=== PATIENT | male | born 1975 | race Caucasian/White ===

== ENCOUNTER → 2018-09-07 11:38 | Outpatient (CLI) | payer OTHER, SELFPAY ==
[2018-09-07 12:50] LABS: Hematocrit 47.6 % (41-53); Hemoglobin 16.5 g/dL (13.5-17.5); Mean Corpuscular HGB Conc 34.7 % (30-36); Mean Corpuscular Hemoglobin 30.8 PG (26-34); Mean Corpuscular Volume 88.8 fL (80-100); Platelet Count 191 X10^3/uL (150-400); Red Blood Cell Count 5.37 X10^6/uL (4.5-5.9); Red Cell Distribution Width 13.4 % (11.6-14.8); White Blood Cell Count 10.2 X10^3/uL (4.5-11.0)
[2018-09-07 14:06] LABS: Anisocytosis 1+; Neutrophils Absolute Manual 6426 /uL (3000-5900); Poikilocytosis 1+; Total Cells Counted 100
[2018-09-07 17:32] LABS: Blood Urea Nitrogen 20 mg/dL (9-20); Calcium 10.1 mg/dL (8.4-10.2); Carbon Dioxide 27 mmol/L (22-32); Chloride 102 mmol/L (98-107); Estimated Glomerular Filt Rate > 60.0 mL/min (>60); Glucose 93 mg/dL (70-100); HEMOLYSIS < 15 (0-50); Potassium 4.2 mmol/L (3.4-5.1); Sodium 141 mmol/L (137-145)
== END ==
PROVIDERS: Visit Provider Hospitalist
DX: I10 Essential (primary) hypertension (principal)
CPT/HCPCS: 36415; 80048; 85025

== ENCOUNTER → 2018-11-10 12:50 | Outpatient (CLI) | payer OTHER, SELFPAY ==
[2018-11-10 13:21] LABS: Add Manual Diff / Slide Review NO; Basophils Absolute Auto 100 /uL (0-100); Basophils Percent Auto 0.6 % (0-2); Eosinophils Absolute Auto 300 /uL (0-450); Eosinophils Percent Auto 2.7 % (2-4); Hematocrit 47.3 % (41-53); Hemoglobin 16.1 g/dL (13.5-17.5); Lymphocytes Absolute Auto 2600 /uL (1100-4500); Lymphocytes Percent Auto 24.9 % (25-40); Mean Corpuscular Hemoglobin 30.7 PG (26-34); Mean Corpuscular Volume 90.1 fL (80-100); Monocytes Absolute Auto 900 /uL (0-900); Monocytes Percent Auto 8.2 % (3-14); Neutrophils Absolute Auto 6700 /uL (1500-7000); Neutrophils Percent Auto 63.6 % (50-75); Platelet Count 201 X10^3/uL (150-400); Red Blood Cell Count 5.25 X10^6/uL (4.5-5.9); Red Cell Distribution Width 13.3 % (11.6-14.8); White Blood Cell Count 10.5 X10^3/uL (4.5-11.0)
[2018-11-10 14:31] LABS: Ferritin 63.7 ng/mL (17.9-464)
== END ==
DX: E83.110 Hereditary hemochromatosis (principal)
CPT/HCPCS: 36415; 82728; 85025

== ENCOUNTER → 2018-11-24 11:07 | Outpatient (CLI) | payer OTHER, SELFPAY ==
[2018-11-24 11:23] LABS: Add Manual Diff / Slide Review NO; Basophils Absolute Auto 100 /uL (0-100); Basophils Percent Auto 0.5 % (0-2); Eosinophils Absolute Auto 100 /uL (0-450); Eosinophils Percent Auto 1.4 % (2-4); Hematocrit 47.3 % (41-53); Hemoglobin 16.3 g/dL (13.5-17.5); Lymphocytes Absolute Auto 2000 /uL (1100-4500); Lymphocytes Percent Auto 20.2 % (25-40); Mean Corpuscular HGB Conc 34.4 % (30-36); Mean Corpuscular Hemoglobin 30.9 PG (26-34); Mean Corpuscular Volume 89.9 fL (80-100); Monocytes Absolute Auto 600 /uL (0-900); Monocytes Percent Auto 5.9 % (3-14); Neutrophils Absolute Auto 6900 /uL (1500-7000); Platelet Count 201 X10^3/uL (150-400); Red Blood Cell Count 5.26 X10^6/uL (4.5-5.9); Red Cell Distribution Width 12.9 % (11.6-14.8); White Blood Cell Count 9.6 X10^3/uL (4.5-11.0)
[2018-11-24 12:23] LABS: 585 Gram Check PASS; Dizziness NO; Postdiastolic BP 109; Postsystolic BP 174; Prediastolic 111; Presystolic 165; Pulse 105; Site of phlebotomy RAC; Swelling NO; Therapeutic Phleb Comment NO COMMENT; Zero Check Sebra Scale PASS
== END ==
DX: E83.110 Hereditary hemochromatosis (principal)
CPT/HCPCS: 36415; 82728; 85025; 99195

== ENCOUNTER → 2019-06-30 11:58 | Outpatient (CLI) | payer OTHER, SELFPAY ==
[2019-06-30 13:28] LABS: Hemoglobin A1C% w Est Avg Glu 7.6 % (4.0-6.0)
[2019-06-30 14:19] LABS: Glucose 118 mg/dL (70-100)
== END ==
PROVIDERS: PCP Internal Medicine; Referring Provider Internal Medicine; Visit Provider Internal Medicine
DX: R73.9 Hyperglycemia, unspecified (principal)
CPT/HCPCS: 36415; 82947; 83036

== ENCOUNTER → 2019-07-28 11:24 | Outpatient (CLI) | payer OTHER, SELFPAY ==
[2019-07-28 12:38] LABS: Add Manual Diff / Slide Review NO; Basophils Absolute Auto 100 /uL (0-100); Basophils Percent Auto 0.8 % (0-2); Eosinophils Absolute Auto 200 /uL (0-450); Eosinophils Percent Auto 2.1 % (2-4); Hematocrit 44.1 % (41-53); Hemoglobin 14.9 g/dL (13.5-17.5); Lymphocytes Absolute Auto 2400 /uL (1100-4500); Lymphocytes Percent Auto 27.9 % (25-40); Mean Corpuscular HGB Conc 33.7 % (30-36); Mean Corpuscular Hemoglobin 30.8 PG (26-34); Mean Corpuscular Volume 91.3 fL (80-100); Monocytes Absolute Auto 500 /uL (0-900); Monocytes Percent Auto 5.5 % (3-14); Neutrophils Absolute Auto 5500 /uL (1500-7000); Neutrophils Percent Auto 63.7 % (50-75); Platelet Count 192 X10^3/uL (150-400); Red Blood Cell Count 4.83 X10^6/uL (4.5-5.9); Red Cell Distribution Width 12.5 % (11.6-14.8); White Blood Cell Count 8.6 X10^3/uL (4.5-11.0)
[2019-07-28 12:49] LABS: Alanine Aminotransferase 60 IU/L (<50); Albumin 4.5 g/dL (3.5-5.0); Albumin Globulin Ratio 1.4 (1.0-2.8); Alkaline Phosphatase 79 U/L (38-126); Aspartate Aminotransferase 40 IU/L (17-59); Bilirubin Total 0.5 mg/dL (0.2-1.3); Blood Urea Nitrogen 16 mg/dL (9-20); Calcium 9.9 mg/dL (8.4-10.2); Carbon Dioxide 24 mmol/L (22-32); Chloride 103 mmol/L (98-107); Estimated Glomerular Filt Rate > 60.0 mL/min (>60); Globulin 3.2 g/dL (1.7-4.1); Glucose 158 mg/dL (70-100); HEMOLYSIS < 15 (0-50); Potassium 4.2 mmol/L (3.4-5.1); Sodium 137 mmol/L (137-145); Total Protein 7.7 g/dL (6.3-8.2)
[2019-07-28 13:14] LABS: Hemoglobin A1C% w Est Avg Glu 7.4 % (4.0-6.0)
[2019-07-28 13:23] LABS: Ferritin 40 ng/mL (18-464)
[2019-07-28 13:27] LABS: 585 Gram Check PASS; Dizziness NO; Postdiastolic BP 99; Postsystolic BP 167; Prediastolic 112; Presystolic 168; Pulse 80; Site of phlebotomy RAC; Swelling NO; Therapeutic Phleb Comment NO COMMENT; Zero Check Sebra Scale PASS
== END ==
PROVIDERS: PCP Internal Medicine; Referring Provider Internal Medicine Hematology & Oncology; Visit Provider Internal Medicine Hematology & Oncology
DX: E83.110 Hereditary hemochromatosis (principal); E11.65 Type 2 diabetes mellitus with hyperglycemia
CPT/HCPCS: 80053; 82728; 83036; 85025; 99195

== ENCOUNTER → 2019-09-28 09:57 | Outpatient (CLI) | payer OTHER, SELFPAY ==
[2019-09-28 11:42] LABS: Blood Urea Nitrogen 17 mg/dL (9-20); Calcium 9.9 mg/dL (8.4-10.2); Carbon Dioxide 27 mmol/L (22-32); Chloride 103 mmol/L (98-107); Estimated Glomerular Filt Rate > 60.0 mL/min (>60); Glucose 95 mg/dL (70-100); HEMOLYSIS < 15 (0-50); Potassium 4.2 mmol/L (3.4-5.1); Sodium 139 mmol/L (137-145)
[2019-09-28 12:19] LABS: 585 Gram Check PASS; Dizziness NO; Postdiastolic BP 95; Postsystolic BP 149; Prediastolic 92; Presystolic 152; Pulse 77; Site of phlebotomy RAC; Swelling NO; Zero Check Sebra Scale PASS
[2019-09-28 12:20] LABS: Therapeutic Phleb Comment NO COMMENT
== END ==
PROVIDERS: Internal Medicine Hematology & Oncology; PCP Internal Medicine; Referring Provider Internal Medicine; Visit Provider Internal Medicine
DX: E83.110 Hereditary hemochromatosis (principal); E11.65 Type 2 diabetes mellitus with hyperglycemia; I10 Essential (primary) hypertension
CPT/HCPCS: 80048; 83036; 99195

== ENCOUNTER → 2019-11-17 11:55 | Oncology outpatient (ONC) | payer OTHER, SELFPAY ==
[2018-09-27 10:43] VITALS: BP 148/97; PULSE 96; RESP 16; TEMP 36.7; O2SAT 96
--- NOTE | 2018-09-27 11:15 | ONC.CONS ---
History of Present Illness - Data of Consult Consult date: 09/27/18 - Consult Narrative Narrative: Diagnosis: Hemochromatosis History of present illness: Julio Orozco is a 42 year old male who is referred for ongoing care of hemochromatosis. The patient has recently moved here from [place]. He reports that he was diagnosed about 15-20 years ago with her carlos Burton hemochromatosis. He has been on regular phlebotomy ever since. Typically, he has a unit of blood taken every 3-4 months. He denies any complications from his disease. There is no history of heart trouble, liver disease, joint problems, diabetes or skin rash. He does sometimes feel itchy if it has been too long since his last phlebotomy. Today, he is feeling quite well and has no specific complaints. He denies any fevers or chills. No shortness of breath or cough. Appetite and energy level have been good. He is otherwise without complaint. His past medical history is otherwise notable for hypertension. Family history is notable for an uncle with hemochromatosis. Social history: He has recently . His spouse is in the [employer]. He has recently moved from [place]. He does smoke cigarettes and is trying to cut back. He does not drink alcohol. CC: Seth Weinstein MD Home Medications and Allergies Home Medications Medication Instructions Recorded Confirmed Type naproxen 500 mg tablet,delayed 1,000 mg PO DAILY PRN tab 09/07/18 09/14/18 History release perindopril erbumine 4 mg tablet 4 mg PO DAILY 09/07/18 09/14/18 History hydrochlorothiazide 25 mg tablet 25 mg PO DAILY #30 tab 09/14/18 Rx Allergies Allergy/AdvReac Type Severity Reaction Status Date / Time No Known Drug Allergies Allergy Verified 09/14/18 09:35 Medical History - Medical, Surgical, Family History Medical History: Medical History (Updated 09/14/18 @ 10:28 by Klaudia Davey MD) HTN (hypertension) Headache Onset Date: ~1999 Hemochromatosis Onset Date: ~2007 Migraines Onset Date: ~1999 Tinnitus Vision disorder Surgical History: Surgical History (Updated 09/13/18 @ 23:01 by Shalini Mckeon) Anesthesia History of appendectomy Family History: Family History (Updated 09/13/18 @ 23:01 by Shalini Mckeon) Father Hypertension Mother Hypertension Brother Hypertension - Social History Smoking Status: Current every day smoker Review of Systems - Patient Self-Reported Symptoms SR ears, nose, mouth, throat issues: Ears ringing SR Neuro issues: Headache Constitutional: normal activity level Respiratory: no shortness of breath Gastrointestinal: no nausea, no vomiting Musculoskeletal: no pain Hematologic/Lymphatic: no anemia Exam Vital signs: Vital Signs Temp Pulse Resp BP Pulse Ox 09/27/18 10:43 98.1 F 96 H 16 148/97 H 96 Intake and Output 09/26/18 09/27/18 09/27/18 23:59 07:59 15:59 Other: Weight 121.1 kg Patient Weight 09/27/18 23:59 Weight 121.1 kg - Constitutional positive no acute distress, positive average body habitus - Routine HEENT Exam Head: Present: normocephalic, atraumatic Eye: Present: EOMI, PERRL. Absent: conjunctival icterus, scleral injection ENT: Present: mucous membranes moist, oropharynx clear - Routine Neck Exam Present: supple. Absent: lymphadenopathy, thyromegaly - Routine Chest/Breast/Axilla Exam Axillae: Absent: lymphadenopathy - Routine Respiratory Exam Present: Clear to auscultation bilaterally. Absent: rales, wheezes - Routine Cardiovascular Exam Present: RRR, S1, S2. Absent: murmur - Routine Abdominal Exam Present: soft, normoactive bowel sounds. Absent: tenderness, organomegaly, mass - Routine Extremities Exam Absent: cyanosis, clubbing, edema - Routine Back/Spine Exam Back/Spine: Absent: vertebral tenderness - Routine Skin Exam Present: intact. Absent: petechiae, rash - Routine Neurological Exam Present: alert, oriented X3 Assessment and Plan (1) Idiopathic hemochromatosis Current visit: No Status: Chronic A 42-year-old man with a history of hereditary hemochromatosis. He has been stable on phlebotomy. We will plan on checking a ferritin and CBC every 3 months. He will need a phlebotomy if his ferritin is over 50. He will return to clinic in about 6 months for follow-up.
[2018-09-27 11:53] LABS: Add Manual Diff / Slide Review NO; Basophils Absolute Auto 100 /uL (0-100); Basophils Percent Auto 0.8 % (0-2); Eosinophils Absolute Auto 600 /uL (0-450); Eosinophils Percent Auto 6.7 % (2-4); Hematocrit 47.1 % (41-53); Hemoglobin 16.1 g/dL (13.5-17.5); Lymphocytes Absolute Auto 1900 /uL (1100-4500); Lymphocytes Percent Auto 23.1 % (25-40); Mean Corpuscular HGB Conc 34.2 % (30-36); Mean Corpuscular Hemoglobin 30.4 PG (26-34); Mean Corpuscular Volume 88.9 fL (80-100); Monocytes Absolute Auto 600 /uL (0-900); Monocytes Percent Auto 7.1 % (3-14); Neutrophils Absolute Auto 5200 /uL (1500-7000); Neutrophils Percent Auto 62.3 % (50-75); Platelet Count 181 X10^3/uL (150-400); White Blood Cell Count 8.3 X10^3/uL (4.5-11.0)
[2018-09-27 12:07] LABS: BUN Creatinine Ratio 16.7 (6-22); Blood Urea Nitrogen 15 mg/dL (9-20); Calcium 9.7 mg/dL (8.4-10.2); Carbon Dioxide 28 mmol/L (22-32); Chloride 105 mmol/L (98-107); Estimated Glomerular Filt Rate > 60.0 mL/min (>60); Glucose 94 mg/dL (70-100); HEMOLYSIS < 15 (0-50); Potassium 4.1 mmol/L (3.4-5.1); Sodium 142 mmol/L (137-145)
[2018-09-27 12:42] LABS: Ferritin 37.6 ng/mL (17.9-464)
--- NOTE | 2019-03-09 11:54 | ONC.SCHED ---
Moved appointment from 03/22 to 03/29.
[2019-03-23 12:35] LABS: 585 Gram Check PASS; Zero Check Sebra Scale PASS
[2019-03-23 12:36] LABS: Dizziness NO; Postdiastolic BP 103; Postsystolic BP 148; Prediastolic 99; Presystolic 175; Pulse 85; Site of phlebotomy RAC; Swelling NO; Therapeutic Phleb Comment NO COMMENT
[2019-03-23 12:40] LABS: Add Manual Diff / Slide Review NO; Basophils Absolute Auto 0 /uL (0-100); Basophils Percent Auto 0.5 % (0-2); Eosinophils Absolute Auto 100 /uL (0-450); Eosinophils Percent Auto 1.6 % (2-4); Hematocrit 47.2 % (41-53); Hemoglobin 16.3 g/dL (13.5-17.5); Lymphocytes Absolute Auto 1900 /uL (1100-4500); Lymphocytes Percent Auto 24.3 % (25-40); Mean Corpuscular HGB Conc 34.5 % (30-36); Mean Corpuscular Volume 89.9 fL (80-100); Monocytes Absolute Auto 500 /uL (0-900); Neutrophils Absolute Auto 5200 /uL (1500-7000); Neutrophils Percent Auto 66.6 % (50-75); Platelet Count 184 X10^3/uL (150-400); Red Blood Cell Count 5.25 X10^6/uL (4.5-5.9); Red Cell Distribution Width 12.9 % (11.6-14.8); White Blood Cell Count 7.8 X10^3/uL (4.5-11.0)
[2019-03-23 13:32] LABS: Ferritin 93.1 ng/mL (17.9-464)
[2019-03-29 09:07] VITALS: BP 160/110; PULSE 92; RESP 16; TEMP 36.8; O2SAT 96
--- NOTE | 2019-03-29 09:20 | P.PNONC_ITS ---
PN -Subjective Interval history: Diagnosis: Hereditary hemochromatosis Previous treatment: Phlebotomy, he is currently getting it every 3 months. Interval history: Patient is a 43-year-old man who returns today for follow-up. He has a history of hereditary hemochromatosis. He continues on phlebotomy about every 3 months. He has been tolerating the procedure well. He has noted a little bit of itching at the sites that he attributes either to the this infected or tape. He denies any dizziness or lightheadedness. No unusual bleeding or bruising. No fevers chills or night sweats. No abdominal complaints. Strength and energy level have been good. He does have a history of hypertension has had some change in his blood pressure medications. He is currently on lisinopril and hydrochlorothiazide. Social history: He is from [facility]. He notes that he'll be traveling back to [facility] in September for visit. After that, he'll be moving to [place]. - Patient Self-Reported Symptoms SR ears, nose, mouth, throat issues: Ears ringing SR Neuro issues: Headache Home Medications and Allergies Home Medications Medication Instructions Recorded Confirmed Type naproxen 500 mg tablet,delayed 1,000 mg PO DAILY PRN tab 09/07/18 11/25/18 History release perindopril erbumine 4 mg tablet 4 mg PO DAILY 09/07/18 11/25/18 History hydrochlorothiazide 25 mg tablet 25 mg PO DAILY #30 tab 09/14/18 11/25/18 Rx lisinopril 10 mg tablet 10 mg PO DAILY #30 tab 11/25/18 Rx Allergies Allergy/AdvReac Type Severity Reaction Status Date / Time No Known Drug Allergies Allergy Verified 11/25/18 11:06 Exam Vital signs: Vital Signs Temp Pulse Resp BP Pulse Ox 03/29/19 09:07 98.3 F 92 H 16 160/110 H 96 Intake and Output 03/28/19 03/29/19 03/29/19 23:59 07:59 15:59 Other: Weight 122.9 kg Patient Weight 03/29/19 23:59 Weight 122.9 kg - Constitutional positive no acute distress, positive average body habitus - Routine HEENT Exam Head: Present: normocephalic, atraumatic Eye: Present: EOMI, PERRL. Absent: conjunctival icterus, scleral injection ENT: Present: mucous membranes moist, oropharynx clear - Routine Neck Exam Present: supple. Absent: lymphadenopathy, thyromegaly - Routine Respiratory Exam Present: Clear to auscultation bilaterally. Absent: rales, wheezes - Routine Cardiovascular Exam Present: RRR, S1, S2. Absent: murmur - Routine Abdominal Exam Present: soft, normoactive bowel sounds. Absent: tenderness, organomegaly, mass - Routine Extremities Exam Absent: cyanosis, clubbing, edema - Routine Back/Spine Exam Back/Spine: Absent: vertebral tenderness - Routine Skin Exam Present: intact. Absent: petechiae, rash - Routine Neurological Exam Present: alert, oriented X3 - Routine Psychiatric Exam Present: normal affect, normal thought process Results - Labs Laboratory Last Values WBC 7.8 X10^3/uL (4.5-11.0) 03/23/19 12:00 RBC 5.25 X10^6/uL (4.5-5.9) 03/23/19 12:00 Hgb 16.3 g/dL (13.5-17.5) 03/23/19 12:00 Hct 47.2 % (41-53) 03/23/19 12:00 MCV 89.9 fL (80-100) 03/23/19 12:00 MCH 31.0 PG (26-34) 03/23/19 12:00 MCHC 34.5 % (30-36) 03/23/19 12:00 RDW 12.9 % (11.6-14.8) 03/23/19 12:00 Plt Count 184 X10^3/uL (150-400) 03/23/19 12:00 Neut % (Auto) 66.6 % (50-75) 03/23/19 12:00 Lymph % (Auto) 24.3 % (25-40) L 03/23/19 12:00 [place] % (Auto) 7.0 % (3-14) 03/23/19 12:00 Eos % (Auto) 1.6 % (2-4) L 03/23/19 12:00 Baso % (Auto) 0.5 % (0-2) 03/23/19 12:00 Neut # (Auto) 5200 /uL ([id number]) 03/23/19 12:00 Lymph # (Auto) 1900 /uL (4735-6992) 03/23/19 12:00 [place] # (Auto) 500 /uL (0-900) 03/23/19 12:00 Eos # (Auto) 100 /uL (0-450) 03/23/19 12:00 Baso # (Auto) 0 /uL (0-100) 03/23/19 12:00 Sodium 142 mmol/L (137-145) 09/27/18 11:41 Potassium 4.1 mmol/L (3.4-5.1) 09/27/18 11:41 Chloride 105 mmol/L (98-107) 09/27/18 11:41 Carbon Dioxide 28 mmol/L (22-32) 09/27/18 11:41 BUN 15 mg/dL (9-20) 09/27/18 11:41 Creatinine 0.90 mg/dL (0.66-1.25) 09/27/18 11:41 Estimated GFR > 60.0 mL/min (>60) 09/27/18 11:41 BUN/Creatinine Ratio 16.7 (6-22) 09/27/18 11:41 Glucose 94 mg/dL (70-100) 09/27/18 11:41 Calcium 9.7 mg/dL (8.4-10.2) 09/27/18 11:41 Ferritin 93.1 ng/mL (17.9-464) 03/23/19 12:00 Scale Conventional Cl Pass 03/23/19 12:03 Assessment and Plan (1) Idiopathic hemochromatosis Current visit: No Status: Chronic A 42-year-old man with a history of hereditary hemochromatosis. He has been tolerating phlebotomy about 3 months. His ferritin is up slightly. If it continues to increase, he may need to increase the frequency of his phlebotomy to compensate. He'll continue with his current regimen for now. He'll return to clinic here in about 3 months for follow-up.
--- NOTE | 2019-03-31 13:48 | ONC.SCHED ---
I got the therapeutic phlebotomy authorized through . The patient has scheduled his phlebotomy with Kushal prior to his fup visit in June 2019.
--- NOTE | 2019-06-13 12:12 | ONC.SCHED ---
Hospital requested move. Please do not move 07/06/2019 appointment.
[2019-06-29 10:11] LABS: 585 Gram Check PASS; Prediastolic 101; Presystolic 156; Pulse 67; Zero Check Sebra Scale PASS
[2019-06-29 10:12] LABS: Dizziness NO; Postdiastolic BP 97; Postsystolic BP 152; Site of phlebotomy RAC; Swelling NO; Therapeutic Phleb Comment NO COMMENT
[2019-06-29 10:56] LABS: Add Manual Diff / Slide Review NO; Basophils Absolute Auto 100 /uL (0-100); Basophils Percent Auto 0.6 % (0-2); Eosinophils Absolute Auto 200 /uL (0-450); Eosinophils Percent Auto 1.8 % (2-4); Hemoglobin 15.5 g/dL (13.5-17.5); Lymphocytes Absolute Auto 2300 /uL (1100-4500); Lymphocytes Percent Auto 25.3 % (25-40); Mean Corpuscular HGB Conc 33.8 % (30-36); Mean Corpuscular Volume 91.7 fL (80-100); Monocytes Absolute Auto 500 /uL (0-900); Neutrophils Absolute Auto 6000 /uL (1500-7000); Neutrophils Percent Auto 66.3 % (50-75); Platelet Count 186 X10^3/uL (150-400); Red Blood Cell Count 5.01 X10^6/uL (4.5-5.9); Red Cell Distribution Width 12.3 % (11.6-14.8); White Blood Cell Count 9.1 X10^3/uL (4.5-11.0)
[2019-06-29 11:14] LABS: HEMOLYSIS < 15 (0-50); Iron 151 ug/dL (49-181)
[2019-06-29 11:16] LABS: Alanine Aminotransferase 81 IU/L (<50); Albumin 4.3 g/dL (3.5-5.0); Albumin Globulin Ratio 1.3 (1.0-2.8); Alkaline Phosphatase 91 U/L (38-126); Aspartate Aminotransferase 62 IU/L (17-59); BUN Creatinine Ratio 18.2 (6-22); Bilirubin Total 0.5 mg/dL (0.2-1.3); Blood Urea Nitrogen 14 mg/dL (9-20); Calcium 9.6 mg/dL (8.4-10.2); Carbon Dioxide 24 mmol/L (22-32); Chloride 103 mmol/L (98-107); Estimated Glomerular Filt Rate > 60.0 mL/min (>60); Globulin 3.2 g/dL (1.7-4.1); Glucose 209 mg/dL (70-100); HEMOLYSIS < 15 (0-50); Sodium 139 mmol/L (137-145); Total Protein 7.5 g/dL (6.3-8.2)
[2019-06-29 11:25] LABS: Percent Iron Saturation 52 % (20-50); Total Iron Binding Capacity 288 ug/dL (261-462); Transferrin 229 mg/dL (206-381)
[2019-06-29 11:51] LABS: Ferritin 109 ng/mL (18-464)
[2019-07-06 11:50] VITALS: BP 143/90; PULSE 80; RESP 18; TEMP 36.8; O2SAT 98
--- NOTE | 2019-07-06 11:59 | ONC.PN ---
PN -Subjective Interval history: Diagnosis: Hereditary hemochromatosis Previous treatment: Phlebotomy, he is currently getting it every 3 months. Interval history: The patient is a 43-year-old man who returns today for follow-up. He has a history of hereditary hemochromatosis. He continues on phlebotomy about every 3 months. He has been tolerating the procedure well. He has noted a little bit of itching. He denies any dizziness or lightheadedness. No unusual bleeding or bruising. No fevers chills or night sweats. No abdominal complaints. Strength and energy level have been good. He does have a history of hypertension has had some change in his blood pressure medications. He is currently on lisinopril and hydrochlorothiazide. Social history: He is from [facility]. He notes that he'll be traveling back to [facility] in September for visit, although all plans are on hold due to coronavirus concerns. After that, he'll be moving to [place]. - Patient Self-Reported Symptoms SR ears, nose, mouth, throat issues: Ears ringing SR Neuro issues: Headache Home Medications and Allergies Home Medications Medication Instructions Recorded Confirmed Type naproxen 500 mg tablet,delayed 1,000 mg PO DAILY PRN tab 09/07/18 07/06/19 History release metoprolol succinate 100 mg 100 mg PO DAILY #90 tab 06/21/19 07/06/19 Rx tablet,extended release 24 hr metformin 500 mg tablet 500 mg PO BID #60 tab 07/01/19 07/06/19 Rx Allergies Allergy/AdvReac Type Severity Reaction Status Date / Time No Known Drug Allergies Allergy Verified 06/21/19 09:48 Exam Vital signs: Vital Signs Temp Pulse Resp BP Pulse Ox 07/06/19 11:50 98.3 F 80 18 143/90 H 98 Intake and Output 07/05/19 07/06/19 07/06/19 23:59 07:59 15:59 Other: Weight 123 kg Patient Weight 07/06/19 23:59 Weight 123 kg Narrative: HEENT: Pupils equally round reactive to light extraocular muscles intact sclerae anicteric conjunctiva pink mucous membranes moist no oral lesions Nodes no palpable adenopathy in the neck axilla or groin Chest: Clear throughout Cardiac exam regular rate and rhythm with normal S1 and S2 Abdomen: Soft nontender with normoactive bowel tones no splenomegaly or masses Extremities: Trace pedal edema 2+ distal pulses no calf tenderness Results - Labs Laboratory Last Values WBC 9.1 X10^3/uL (4.5-11.0) 06/29/19: RBC 5.01 X10^6/uL (4.5-5.9) 06/29/19 09: Hgb 15.5 g/dL (13.5-17.5) 06/29/19: Hct 46.0 % (41-53) 06/29/19: MCV 91.7 fL (80-100) 06/29/19: MCH 31.0 PG (26-34) 06/29/19: MCHC 33.8 % (30-36) 06/29/19: RDW 12.3 % (11.6-14.8) 06/29/19: Plt Count 186 X10^3/uL (150-400) 06/29/19: Neut % (Auto) 66.3 % (50-75) 06/29/19: Lymph % (Auto) 25.3 % (25-40) 06/29/19: [place] % (Auto) 6.0 % (3-14) 06/29/19: Eos % (Auto) 1.8 % (2-4) L 06/29/19: Baso % (Auto) 0.6 % (0-2) 06/29/19: Neut # (Auto) 6000 /uL (0201-7061) 06/29/19: Lymph # (Auto) 2300 /uL (0097-6265) 06/29/19: [place] # (Auto) 500 /uL (0-900) 06/29/19: Eos # (Auto) 200 /uL (0-450) 06/29/19: Baso # (Auto) 100 /uL (0-100) 06/29/19 09: Sodium 139 mmol/L (137-145) 06/29/19: Potassium 4.0 mmol/L (3.4-5.1) 06/29/19: Chloride 103 mmol/L (98-107) 06/29/19: Carbon Dioxide 24 mmol/L (22-32) 06/29/19 09:31 BUN 14 mg/dL (9-20) 06/29/19 09:31 Creatinine 0.77 mg/dL (0.66-1.25) 06/29/19 09:31 Estimated GFR > 60.0 mL/min (>60) 06/29/19 09:31 BUN/Creatinine Ratio 18.2 (6-22) 06/29/19 09:31 Glucose 209 mg/dL (70-100) H 06/29/19 09:31 Calcium 9.6 mg/dL (8.4-10.2) 06/29/19 09:31 Iron 151 ug/dL (49-181) 06/29/19 07:31 TIBC 288 ug/dL (261-462) 06/29/19 07:31 % Saturation 52 % (20-50) H 06/29/19 07:31 Transferrin 229 mg/dL (206-381) 06/29/19 07:31 Ferritin 109 ng/mL (18-464) 06/29/19 09:31 Total Bilirubin 0.5 mg/dL (0.2-1.3) 06/29/19 09:31 AST 62 IU/L (17-59) H 06/29/19 09:31 ALT 81 IU/L (<50) H 06/29/19 09:31 Alkaline Phosphatase 91 U/L (38-126) 06/29/19 09:31 Total Protein 7.5 g/dL (6.3-8.2) 06/29/19 09:31 Albumin 4.3 g/dL (3.5-5.0) 06/29/19 09:31 Globulin 3.2 g/dL (1.7-4.1) 06/29/19 09:31 Albumin/Globulin Ratio 1.3 (1.0-2.8) 06/29/19 09:31 Scale Conventional Cl Pass 06/29/19 09:31 Assessment and Plan (1) Idiopathic hemochromatosis Current visit: No Status: Chronic 43-year-old man with hereditary hemochromatosis. He has been tolerating phlebotomy about 3 months. His ferritin is up slightly, so we will add an additional phlebotomy in about 2 weeks. He'll return to clinic here in about 3 months for follow-up. Anticipate additional phlebotomy at that time.
[2019-10-26 11:02] VITALS: BP 138/82; PULSE 93; RESP 18; TEMP 36.8; O2SAT 94
--- NOTE | 2019-10-26 12:52 | ONC.PN ---
PN -Subjective Interval history: Diagnosis: Hereditary hemochromatosis Previous treatment: Phlebotomy, he is currently getting it every 3 months. Interval history: The patient is a 43-year-old man who returns today for follow-up. He has a history of hereditary hemochromatosis. He continues on phlebotomy about every 3 months. He has been tolerating the procedure well. He has noted a little bit of itching. He denies any dizziness or lightheadedness. No unusual bleeding or bruising. No fevers chills or night sweats. No abdominal complaints. Strength and energy level have been good. He does have a history of hypertension has had some change in his blood pressure medications. He is currently on lisinopril and hydrochlorothiazide. Social history: He is from [place]. He has planned trip back to [facility] in August for his grandmother's 89 birthday was canceled due to coronavirus. He and his are planning to move to [place] at the end of November or beginning of December. - Patient Self-Reported Symptoms SR Constitution: Night Sweats SR ears, nose, mouth, throat issues: Ears ringing SR Neuro issues: Headache Home Medications and Allergies Home Medications Medication Instructions Recorded Confirmed Type naproxen 500 mg tablet,delayed 1,000 mg PO DAILY PRN tab 09/07/18 10/21/19 History release metformin 500 mg tablet 500 mg PO BID #60 tab 07/01/19 10/21/19 Rx doxycycline hyclate 100 mg capsule 100 mg PO BID 08/12/19 10/21/19 History lisinopril 20 mg tablet 20 mg PO DAILY #30 tab 09/09/19 10/21/19 Rx metoprolol succinate 100 mg 100 mg PO BID #180 tab 09/09/19 10/21/19 Rx tablet,extended release 24 hr Allergies Allergy/AdvReac Type Severity Reaction Status Date / Time No Known Drug Allergies Allergy Verified 10/21/19 09:59 Exam Vital signs: Vital Signs Temp Pulse Resp BP Pulse Ox 10/26/19 11:02 98.2 F 93 H 18 138/82 94 Intake and Output 10/25/19 10/26/19 10/26/19 23:59 07:59 15:59 Other: Weight 121 kg Patient Weight 10/26/19 23:59 Weight 121 kg Narrative: He was in no acute distress. He was awake, alert and oriented x3. Results - Labs Laboratory Last Values WBC 9.1 X10^3/uL (4.5-11.0) 06/29/19: RBC 5.01 X10^6/uL (4.5-5.9) 06/29/19 09: Hgb 15.5 g/dL (13.5-17.5) 06/29/19: Hct 46.0 % (41-53) 06/29/19: MCV 91.7 fL (80-100) 06/29/19: MCH 31.0 PG (26-34) 06/29/19: MCHC 33.8 % (30-36) 06/29/19: RDW 12.3 % (11.6-14.8) 06/29/19: Plt Count 186 X10^3/uL (150-400) 06/29/19: Neut % (Auto) 66.3 % (50-75) 06/29/19: Lymph % (Auto) 25.3 % (25-40) 06/29/19: [place] % (Auto) 6.0 % (3-14) 06/29/19: Eos % (Auto) 1.8 % (2-4) L 06/29/19: Baso % (Auto) 0.6 % (0-2) 06/29/19: Neut # (Auto) 6000 /uL (4996-6574) 06/29/19: Lymph # (Auto) 2300 /uL (1440-5896) 06/29/19: [place] # (Auto) 500 /uL (0-900) 06/29/19 09: Eos # (Auto) 200 /uL (0-450) 06/29/19 09: Baso # (Auto) 100 /uL (0-100) 06/29/19: Sodium 139 mmol/L (137-145) 06/29/19: Potassium 4.0 mmol/L (3.4-5.1) 06/29/19: Chloride 103 mmol/L (98-107) 06/29/19: Carbon Dioxide 24 mmol/L (22-32) 06/29/19 09:31 BUN 14 mg/dL (9-20) 06/29/19 09:31 Creatinine 0.77 mg/dL (0.66-1.25) 06/29/19 09:31 Estimated GFR > 60.0 mL/min (>60) 06/29/19 09:31 BUN/Creatinine Ratio 18.2 (6-22) 06/29/19 09:31 Glucose 209 mg/dL (70-100) H 06/29/19 09:31 Calcium 9.6 mg/dL (8.4-10.2) 06/29/19 09:31 Iron 151 ug/dL (49-181) 06/29/19 07:31 TIBC 288 ug/dL (261-462) 06/29/19 07:31 % Saturation 52 % (20-50) H 06/29/19 07:31 Transferrin 229 mg/dL (206-381) 06/29/19 07:31 Ferritin 109 ng/mL (18-464) 06/29/19 09:31 Total Bilirubin 0.5 mg/dL (0.2-1.3) 06/29/19 09:31 AST 62 IU/L (17-59) H 06/29/19 09:31 ALT 81 IU/L (<50) H 06/29/19 09:31 Alkaline Phosphatase 91 U/L (38-126) 06/29/19 09:31 Total Protein 7.5 g/dL (6.3-8.2) 06/29/19 09:31 Albumin 4.3 g/dL (3.5-5.0) 06/29/19 09:31 Globulin 3.2 g/dL (1.7-4.1) 06/29/19 09:31 Albumin/Globulin Ratio 1.3 (1.0-2.8) 06/29/19 09:31 Scale Conventional Cl Pass 06/29/19 09:31 Assessment and Plan (1) Idiopathic hemochromatosis Status: Chronic 43-year-old man with hereditary hemochromatosis. He has been tolerating phlebotomy about 3 months. His ferritin has been under good control. I suggested that he get a phlebotomy right for he leaves [facility] [address], let the end of November. He would then have 3 months to moved to [place] and established care with a new physician without having to jiang. Will schedule a return appointment here in 6 months on the possibility that his move may be canceled. Should he end up moving to [place] as planned, follow-up here will be on an as-needed basis.
[2019-11-17 13:54] LABS: 585 Gram Check PASS; Prediastolic 89; Presystolic 149; Pulse 123; Zero Check Sebra Scale PASS
[2019-11-17 13:55] LABS: Dizziness NO; Postdiastolic BP 99; Postsystolic BP 156; Site of phlebotomy RAC; Swelling NO; Therapeutic Phleb Comment NO COMMENT
== END ==
PROVIDERS: Hospitalist; Internal Medicine
DX: E83.110 Hereditary hemochromatosis (principal)
CPT/HCPCS: 36415; 80048; 80053; 82728; 83540; 83550; 85025; 99195; 99204; 99213; 99214